=== PATIENT | male | born 1970 | race American Indian/Alaskan Native ===

== ENCOUNTER 2021-08-20 13:14 | Observation (INO) | payer SELFPAY ==
--- NOTE | 2021-08-20 13:55 | Emergency Department Report ---
ED GI Bleed HPI - General Chief complaint: GI Bleed Stated complaint: BLOODY STOOL Source: patient Mode of arrival: Ambulatory Limitations: No Limitations - History of Present Illness Initial comments: 51-year-old -[place]an male presents to the emergency room complaining of 1 week history of bloody diarrhea. Patient admits to dizziness mild abdominal pain 3 out of 10. States that he had endoscopy done in [place] new ~needed irritation of the stomach lining and he was placed on a PPI but has been off his medication for 3 months. Patient is a daily drinker of alcohol and cigarettes. Patient reports he scared to eat. Does not have a primary care provider at this time. MD complaint: melena, gross hematochezia Onset/Timin -: week(s) Location: diffuse Radiation: none Severity scale (0 -10): 7 Quality: sharp Consistency: intermittent Improves with: other (Alcohol) Worsens with: other (Not eating) Context: history of GI bleed, alcohol abuse Treatments Prior to Arrival: none - Related Data Allergies Allergy/AdvReac Type Severity Reaction Status Date / Time No Known Allergies Allergy Unverified 08/20/21 13:22 ED Review of Systems ROS: Stated complaint: BLOODY STOOL Other details as noted in HPI Comment: All other systems reviewed and negative ED Physical Exam - General Limitations: No Limitations General appearance: alert, in no apparent distress - Head Head exam: Present: atraumatic, normocephalic - Eye Eye exam: Present: scleral icterus - ENT ENT exam: Present: mucous membranes moist - Neck Neck exam: Present: normal inspection, full ROM - Respiratory Respiratory exam: Present: normal lung sounds bilaterally - Cardiovascular Cardiovascular Exam: Present: regular rate, normal rhythm. Absent: systolic mu rmur, diastolic murmur, rubs, gallop - GI/Abdominal GI/Abdominal exam: Present: soft, normal bowel sounds - Extremities Exam Extremities exam: Present: normal inspection - Back Exam Back exam: Present: normal inspection - Neurological Exam Neurological exam: Present: alert, oriented X3, normal gait - Psychiatric Psychiatric exam: Present: normal affect, normal mood - Skin Skin exam: Present: warm, dry, intact, normal color. Absent: rash ED Course Vital Signs 08/20/21 13:22 Temperature 98 F Pulse Rate 74 Respiratory 18 Rate Blood Pressure 103/51 [Right] O2 Sat by Pulse 100 Oximetry - Consultations Consultation #1: 08/20/21 16:[address] Perez from [facility]. He states he would like an INR and a proton drip and he will evaluate patient in consult. ED Medical Decision Making - Lab Data Result diagrams: 08/20/21 14:06 08/20/21 14:06 Lab Results 08/20/21 08/20/21 08/20/21 Range/Units 14:06 14:06 14:06 WBC 7.1 (4.5-11.0) K/mm3 RBC 2.69 L (3.65-5.03) M/mm3 Hgb 6.9 L (11.8-15.2) gm/dl Hct 21.6 L (35.5-45.6) % MCV 80 L (84-94) fl MCH 26 L (28-32) pg MCHC 32 (32-34) % RDW 18.5 H (13.2-15.2) % Plt Count 271 (140-440) K/mm3 Lymph % (Auto) 33.1 (13.4-35.0) % [place] % (Auto) 8.7 H (0.0-7.3) % Eos % (Auto) 1.8 (0.0-4.3) % Baso % (Auto) 0.4 (0.0-1.8) % Lymph # (Auto) 2.4 (1.2-5.4) K/mm3 [place] # (Auto) 0.6 (0.0-0.8) K/mm3 Eos # (Auto) 0.1 (0.0-0.4) K/mm3 Baso # (Auto) 0.0 (0.0-0.1) K/mm3 Seg Neutrophils % 56.0 (40.0-70.0) % Seg Neutrophils # 4.0 (1.8-7.7) K/mm3 Sodium 138 (137-145) mmol/L Potassium 3.6 (3.6-5.0) mmol/L Chloride 104.5 (98-107) mmol/L Carbon Dioxide 24 (22-30) mmol/L Anion Gap 13 mmol/L BUN 16 (9-20) mg/dL Creatinine 1.1 (0.8-1.3) mg/dL Estimated GFR > 60 ml/min BUN/Creatinine Ratio 15 % Glucose 106 H (75-100) mg/dL Calcium 8.7 (8.4-10.2) mg/dL Total Bilirubin 0.20 (0.1-1.2) mg/dL AST 20 (5-40) units/L ALT 15 (7-56) units/L Alkaline Phosphatase 72 (35-129) units/L Total Protein 5.9 L (6.3-8.2) g/dL Albumin 3.7 L (3.9-5) g/dL Albumin/Globulin Ratio 1.7 % Lipase 38 (13-60) units/L Blood Type O POSITIVE Antibody Screen Negative - Medical Decision Making 51-year-old -Ch[place]an male presents to the emergency room complaining of 1 week history of bloody diarrhea. Patient admits to dizziness mild abdominal pain 3 out of 10. States that he had endoscopy done in [place] new ~needed irritation of the stomach lining and he was placed on a PPI but has been off his medication for 3 months. Patient is a daily drinker of alcohol and cigarettes. Patient reports he scared to eat. Does not have a primary care provider at this time. CBC CMP lipase CT abdomen H&H is 6.9 and 22, stool guaiac is positive. Pending CT scan results. Type and screen is ordered , packed red blood cells have been ordered 2 units. Spoke to attending Dr. Leigh. Spoke to Dr. Hills hospitalist for admission. Pending consult with GI. Spoke to Dr. Perez from [facility] they recommend INR in a PPI drip. I placed a Protonix 80 mg per 100 mL over 8 hours. Missions orders has been placed. Critical care attestation.: If time is entered above; I have spent that time in minutes in the direct care of this critically ill patient, excluding procedure time. ED Disposition Clinical Impression: Anemia GI bleed Qualifiers: GI bleed type/associated pathology: melena Qualified Code(s): K92.1 - Melena Disposition: ADMITTED INPATIENT Is pt being admited?: Yes Does the pt Need Aspirin: No Condition: Stable Instructions: Gastrointestinal Bleeding, [id number] Referrals: PRIMARY CARE, [Primary Care Provider] - 3-5 Days Forms: Accompanied Note Time of Disposition: 16:29
[2021-08-20 14:42] LABS: Basophils % (Auto) 0.4 % (0.0-1.8); Eosinophils # (Auto) 0.1 K/mm3 (0.0-0.4); Eosinophils % (Auto) 1.8 % (0.0-4.3); Hematocrit 21.6 % (35.5-45.6); Hemoglobin 6.9 gm/dl (11.8-15.2); Lymphocytes # (Auto) 2.4 K/mm3 (1.2-5.4); Lymphocytes % (Auto) 33.1 % (13.4-35.0); Mean Corpuscular HGB Conc 32 % (32-34); Mean Corpuscular Volume 80 fl (84-94); Monocytes # (Auto) 0.6 K/mm3 (0.0-0.8); Monocytes % (Auto) 8.7 % (0.0-7.3); Platelet Count 271 K/mm3 (140-440); Red Blood Count 2.69 M/mm3 (3.65-5.03); Red Cell Distribution Width 18.5 % (13.2-15.2)
[2021-08-20 15:03] LABS: Alanine Aminotransferase 15 units/L (7-56); Albumin 3.7 g/dL (3.9-5); BUN/Creatinine Ratio 15; Blood Urea Nitrogen 16 mg/dL (9-20); Calcium 8.7 mg/dL (8.4-10.2); Hemolysis Index 2
[2021-08-20] MEDS ORDERED: SODIUM CHLORIDE 0.9% 500 ML 500 ML IV ONE ×2 (15:54→21:32)
--- NOTE | 2021-08-20 16:20 | Cat Scan Report ---
CT OF THE ABDOMEN AND PELVIS WITH INTRAVENOUS CONTRAST INDICATION / CLINICAL INFORMATION: Abdominal pain and GI bleed. TECHNIQUE: The patient received 100 cc Omnipaque [address] scans at this location are performed using CT dose reduction for ALARA by means of automated exposure control. COMPARISON: None available. FINDINGS: ABDOMEN: The liver, spleen, gallbladder, bile ducts, pancreas, adrenal glands and kidneys are normal in appearance. There is no evidence of bowel obstruction, wall thickening or free air. No adenopathy is present. No acute vascular abnormality is seen. The lung bases are clear. PELVIS: The distal ureters, urinary bladder, prostate gland and seminal vesicles are normal. There ar e a few scattered sigmoid diverticula without acute inflammation. A normal appendix is present. No ab normal mass or fluid collection is seen. I do not identify a hernia. No acute osseous abnormality is present. IMPRESSION: No acute abnormality is identified. Signer Name: Juan Diez MD Signed: 08/20/2021 4:16 PM Workstation Name: [id number]
[2021-08-20] MEDS ORDERED: PANTOPRAZOLE 80 MG in SODIUM CHLORIDE 0.9% 100 ML IV SCH (17:00)
[2021-08-20 17:17] LABS: INR 0.87 (0.87-1.13)
--- NOTE | 2021-08-20 21:11 | History and Physical Report ---
History of Present Illness Date of examination: 08/20/21 Date of admission: 08/20/21 16:29 Chief complaint: Black Stools for 1 week. Lightheadedness for 1 week History of present illness: 51-year-old male with no significant past medical history comes in for 1 week history of melanotic stools. Patient feels lightheaded and dizzy. Especially on standing. Patient has a history of upper GI bleed. Patient had GI bleed 4 months ago in [place]. Patient had upper endoscopy and was initiated on PPIs. Patient has been noncompliant because of no PCP. No follow-up for GI bleed. Patient has moved from [place] to [place]. Patient is interested in construction jobs. No nausea or vomiting. No hematemesis. Past History Past Medical History: other (GI bleed 4 months ago) Past Surgical History: Other (Upper endoscopy) Social history: smoking, other (Alcohol consumption on a regular basis) Family history: hypertension Medications and Allergies Allergies Allergy/AdvReac Type Severity Reaction Status Date / Time No Known Allergies Allergy Unverified 08/20/21 13:22 Home Medications Medication Instructions Recorded Confirmed Last Taken Type No Known Home Medications [No 08/20/21 08/20/21 Unknown History Reported Home Medications] Active Meds: Active Medications Pantoprazole Sodium 80 mg/ (Sodium Chloride) 100 mls @ 10 mls/hr IV DIRECT JULIAN Last Admin: 08/20/21 18:52 Dose: 8 mg/hr, 10 mls/hr Documented by: Review of Systems All systems: negative Exam - Constitutional Vitals: Temp Pulse Resp BP Pulse Ox 98.5 F 69 15 108/64 100 08/20/21 20:35 08/20/21 20:35 08/20/21 20:35 08/20/21 20:35 08/20/21 20:35 General appearance: Present: no acute distress, well-nourished - EENT Eyes: Present: PERRL ENT: hearing intact, clear oral mucosa - Neck Neck: Present: supple, normal ROM - Respiratory Respiratory effort: normal Respiratory: bilateral: CTA - Cardiovascular Heart rate: 78 Rhythm: regular Heart Sounds: Present: S1 & S2. Absent: rub, click - Extremities Extremities: no ischemia, pulses intact, pulses symmetrical, No edema Peripheral Pulses: within normal limits - Abdominal General gastrointestinal: Present: soft, non-tender, non-distended, normal bowel sounds Male genitourinary: Present: normal - Rectal Rectal Exam: stool dark (Occult blood positive) - Integumentary Integumentary: Present: clear, warm, dry - Musculoskeletal Musculoskeletal: gait normal, strength equal bilaterally - Psychiatric Psychiatric: appropriate mood/affect, intact judgment & insight - Neurologic Neurologic: CNII-XII intact, moves all extremities Results - Labs CBC & Chem 7: 08/20/21 14:06 08/20/21 14:06 Labs: Laboratory Last Values WBC 7.1 K/mm3 (4.5-11.0) 08/20/21 14:06 RBC 2.69 M/mm3 (3.65-5.03) L 08/20/21 14:06 Hgb 6.9 gm/dl (11.8-15.2) L 08/20/21 14:06 Hct 21.6 % (35.5-45.6) L 08/20/21 14:06 MCV 80 fl (84-94) L 08/20/21 14:06 MCH 26 pg (28-32) L 08/20/21 14:06 MCHC 32 % (32-34) 08/20/21 14:06 RDW 18.5 % (13.2-15.2) H 08/20/21 14:06 Plt Count 271 K/mm3 (140-440) 08/20/21 14:06 Lymph % (Auto) 33.1 % (13.4-35.0) 08/20/21 14:06 [place] % (Auto) 8.7 % (0.0-7.3) H 08/20/21 14:06 Eos % (Auto) 1.8 % (0.0-4.3) 08/20/21 14:06 Baso % (Auto) 0.4 % (0.0-1.8) 08/20/21 14:06 Lymph # (Auto) 2.4 K/mm3 (1.2-5.4) 08/20/21 14:06 [place] # (Auto) 0.6 K/mm3 (0.0-0.8) 08/20/21 14:06 Eos # (Auto) 0.1 K/mm3 (0.0-0.4) 08/20/21 14:06 Baso # (Auto) 0.0 K/mm3 (0.0-0.1) 08/20/21 14:06 Seg Neutrophils % 56.0 % (40.0-70.0) 08/20/21 14:06 Seg Neutrophils # 4.0 K/mm3 (1.8-7.7) 08/20/21 14:06 PT 12.8 Sec. (12.2-14.9) 08/20/21 16:35 INR 0.87 (0.87-1.13) 08/20/21 16:35 Sodium 138 mmol/L (137-145) 08/20/21 14:06 Potassium 3.6 mmol/L (3.6-5.0) 08/20/21 14:06 Chloride 104.5 mmol/L (98-107) 08/20/21 14:06 Carbon Dioxide 24 mmol/L (22-30) 08/20/21 14:06 Anion Gap 13 mmol/L 08/20/21 14:06 BUN 16 mg/dL (9-20) 08/20/21 14:06 Creatinine 1.1 mg/dL (0.8-1.3) 08/20/21 14:06 Estimated GFR > 60 ml/min 08/20/21 14:06 BUN/Creatinine Ratio 15 % 08/20/21 14:06 Glucose 106 mg/dL (75-100) H 08/20/21 14:06 Calcium 8.7 mg/dL (8.4-10.2) 08/20/21 14:06 Total Bilirubin 0.20 mg/dL (0.1-1.2) 08/20/21 14:06 AST 20 units/L (5-40) 08/20/21 14:06 ALT 15 units/L (7-56) 08/20/21 14:06 Alkaline Phosphatase 72 units/L (35-129) 08/20/21 14:06 Total Protein 5.9 g/dL (6.3-8.2) L 08/20/21 14:06 Albumin 3.7 g/dL (3.9-5) L 08/20/21 14:06 Albumin/Globulin Ratio 1.7 % 08/20/21 14:06 Lipase 38 units/L (13-60) 08/20/21 14:06 Blood Type O POSITIVE 08/20/21 14:06 Antibody Screen Negative 08/20/21 14:06 Crossmatch See Detail 08/20/21 14:06 - Imaging and Cardiology CT scan - abdomen: report reviewed Imaging and Cardiology: Abdomen/pelvis CT No acute abnormalities identified Assessment and Plan Advance Directives: Yes (Full code) - Patient Problems (1) Upper GI bleed Current Visit: Yes Status: Acute Plan to address problem: IV Protonix drip started GI consult Hematocrit and hemoglobin every 8 hours for 3 times (2) Acute blood loss anemia Current Visit: Yes Status: Acute Plan to address problem: Transfuse 1 unit of blood Check hemoglobin and hematocrit every 8 hours (3) Nicotine dependence Current Visit: Yes Status: Chronic Qualifiers: Nicotine product type: cigarettes Plan to address problem: Patient counseled about smoking cessation. Was given the option of Chantix and Wellbutrin. Patient initiated on NicoDerm patch. Smoking cessation counseling for 10 minutes. (4) Malnutrition Current Visit: Yes Status: Chronic Qualifiers: Protein-calorie malnutrition severity: mild Plan to address problem: Mild To initiate dietary supplements once he starts eating (5) Advance care planning Current Visit: Yes Status: Acute Plan to address problem: Disease education conducted, care plan discussed, diagnosis discussed and patient acknowledges understanding with care plan. +30 minutes. (6) DVT prophylaxis Current Visit: Yes Status: Acute Plan to address problem: On anticoagulation and GI prophylaxis
[2021-08-20] MEDS ORDERED: ONDANSETRON 4 MG/2 ML INJ IV PRN (21:17)
[2021-08-20] MEDS ORDERED: ACETAMINOPHEN 325 MG TAB PO PRN (21:17)
[2021-08-20] MEDS ORDERED: METOCLOPRAMIDE 10 MG/2 ML INJ IV PRN (21:17)
[2021-08-20] MEDS ORDERED: HYDROmorphone 1 MG/1 ML INJ IV PRN ×2 (21:17→21:24)
[2021-08-20] MEDS ORDERED: SODIUM CHLORIDE 0.9% 1000 ML 1,000 ML IV SCH (21:30)
--- NOTE | 2021-08-21 08:31 | Anesthesia Day of Surgery ---
Anesthesia Day of Surgery - Day of Surgery Patient Examined: Yes Patient H&P Reviewed: Yes Patient is NPO: Yes
--- NOTE | 2021-08-21 08:31 | Anesthesia Consultation ---
Anesthesia Consult and Med Hx Date of service: 08/21/21 - Airway Anesthetic Teeth Evaluation: Poor (multiple missing, broken teeth) ROM Head & Neck: Adequate Mental/Hyoid Distance: Adequate Mallampati Class: Class II Intubation Access Assessment: Probably Good - Pre-Operative Health Status ASA Pre-Surgery Classification: ASA3 Proposed Anesthetic Plan: MAC - Pulmonary Hx Smoking: Yes (1/2 pack/day) - Gastrointestinal Hx Ulcer: Yes - Hematic Hx Anemia: Yes - Other Systems Hx Obesity: No (mulnutrition)
--- NOTE | 2021-08-21 09:07 | Gastroenterology Consultation ---
History of Present Illness - Reason for Consult Consult date: 08/21/21 melena/GI bleed Requesting physician: LANDON IVORY - History of Present Illness The patient is a 51 yo aam who presents with melena and light headedness. Pt reports having black stools on and off for 10 days. he has had similar sx's months ago with prior upper endoscopy in [place] showing "irritation" and he was placed on PPI. has not been taking medication recently. + epigastric abd pain for past couple weeks, he bought otc ppi which helped "soothe" his stomach. + alcohol abuse (3-4 beers nightly). no known h/o chronic liver disease/cirrhosis. no further bleeding episodes since admission. s/p blood transfusions with stable vital signs. Past History Past Medical History: other (GI bleed 4 months ago) Past Surgical History: Other (Upper endoscopy) Social history: smoking, other (Alcohol consumption on a regular basis) Family history: hypertension Medications and Allergies Allergies Allergy/AdvReac Type Severity Reaction Status Date / Time No Known Allergies Allergy Unverified 08/20/21 13:22 Home Medications Medication Instructions Recorded Confirmed Last Taken Type No Known Home Medications [No 08/20/21 08/20/21 Unknown History Reported Home Medications] Active Meds: Active Medications Acetaminophen (Acetaminophen 325 Mg Tab) 650 mg PO Q4H PRN PRN Reason: Pain MILD(1-3)/Fever >100.5/BROWNING Hydromorphone HCl (Hydromorphone 1 Mg/1 Ml Inj) 0.5 mg IV Q3H PRN PRN Reason: Pain , Severe (7-10) Pantoprazole Sodium 80 mg/ (Sodium Chloride) 100 mls @ 10 mls/hr IV DIRECT JULIAN Last Admin: 08/20/21 18:52 Dose: 8 mg/hr, 10 mls/hr Documented by: Sodium Chloride (Nacl 0.9% 1000 Ml) 1,000 mls @ 42 mls/hr IV DIRECT JULIAN Metoclopramide HCl (Metoclopramide 10 Mg/2 Ml Inj) 10 mg IV Q6H PRN PRN Reason: Nausea And Vomiting Morphine Sulfate (Morphine 2 Mg/1 Ml Inj) 2 mg IV Q4H PRN PRN Reason: Pain, Moderate (4-6) Ondansetron HCl (Ondansetron 4 Mg/2 Ml Inj) 4 mg IV Q3H PRN PRN Reason: Nausea And Vomiting Sodium Chloride (Sodium Chloride 0.9% 10 Ml Flush Syringe) 10 ml IV BID JULIAN Sodium Chloride (Sodium Chloride 0.9% 10 Ml Flush Syringe) 10 ml IV PRN PRN PRN Reason: LINE FLUSH Reviewed/updated patient's home and current medications. Review of Systems - Review of Systems All systems: negative (per HPI) Exam - Constitutional Vital Signs: Temp Pulse Resp BP Pulse Ox 98.9 F 58 L 12 115/88 100 08/20/21 23:02 08/21/21 02:15 08/21/21 04:45 08/21/21 07:01 08/21/21 07:01 General appearance: no acute distress - Respiratory Respiratory effort: normal Respiratory: bilateral: CTA - Cardiovascular Rhythm: regular Heart Sounds: Present: S1 & S2 - Gastrointestinal General gastrointestinal: Present: soft, non-tender, non-distended - Integumentary Integumentary: Present: clear, warm - Neurologic Neurological: alert and oriented x3 - Psychiatric Psychiatric: appropriate mood/affect - Labs CBC & Chem 7: 08/20/21 14:06 08/20/21 14:06 Lab Results: Laboratory Results - last 24 hr 08/20/21 08/20/21 08/20/21 14:06 14:06 14:06 WBC 7.1 RBC 2.69 L Hgb 6.9 L Hct 21.6 L MCV 80 L MCH 26 L MCHC 32 RDW 18.5 H Plt Count 271 Lymph % (Auto) 33.1 [place] % (Auto) 8.7 H Eos % (Auto) 1.8 Baso % (Auto) 0.4 Lymph # (Auto) 2.4 [place] # (Auto) 0.6 Eos # (Auto) 0.1 Baso # (Auto) 0.0 Seg Neutrophils % 56.0 Seg Neutrophils # 4.0 PT INR Sodium 138 Potassium 3.6 Chloride 104.5 Carbon Dioxide 24 Anion Gap 13 BUN 16 Creatinine 1.1 Estimated GFR > 60 BUN/Creatinine Ratio 15 Glucose 106 H Calcium 8.7 Total Bilirubin 0.20 AST 20 ALT 15 Alkaline Phosphatase 72 Total Protein 5.9 L Albumin 3.7 L Albumin/Globulin Ratio 1.7 Lipase 38 Blood Type O POSITIVE Antibody Screen Negative Crossmatch See Detail 08/20/21 16:35 WBC RBC Hgb Hct MCV MCH MCHC RDW Plt Count Lymph % (Auto) [place] % (Auto) Eos % (Auto) Baso % (Auto) Lymph # (Auto) [place] # (Auto) Eos # (Auto) Baso # (Auto) Seg Neutrophils % Seg Neutrophils # PT 12.8 INR 0.87 Sodium Potassium Chloride Carbon Dioxide Anion Gap BUN Creatinine Estimated GFR BUN/Creatinine Ratio Glucose Calcium Total Bilirubin AST ALT Alkaline Phosphatase Total Protein Albumin Albumin/Globulin Ratio Lipase Blood Type Antibody Screen Crossmatch - Imaging CT Scan: report reviewed Assessment and Plan 1. Microcytic anemia/GI bleed - reports black stools for 1-2 weeks. HD stable, s/p blood transfusions. + alcohol abuse but no obvious signs of chronic liver disease/cirrhosis based on labs imaging. cont PPI and will plan EGD today.
[2021-08-21] MEDS ORDERED: propofoL 200 MG/20 ML VIAL IV ONE (09:11)
--- NOTE | 2021-08-21 09:22 | Operative Report ---
Operative Report Operative Report: Esophagogastroduodenoscopy Procedure Note with biopsy Date of procedure: 08/21/2021 Endoscopist: Dipak Perez Pre-op diagnosis/indication: Melena, GI bleed Post-op diagnosis: Gastric ulcers (clean based) MEDICATIONS: MAC COMPLICATIONS: No immediate complications ESTIMATED BLOOD LOSS: Minimal DESCRIPTION OF PROCEDURE: After consent was obtained, the patient was placed in the left lateral decubitis position. The olympus endoscope was inserted into the patient's mouth under direct vision and advanced to the 2nd portion of the duodenum without difficulty. The patient tolerated the procedure well. The views of the mucosa were good. The patient's vital signs were monitored continuously throughout the procedure. FINDINGS: There was a small hiatal hernia. Otherwise, the esophagus appeared normal. There was an ~8 mm slightly cratered ulcer in the antrum of the stomach. There was another ~2 mm superficial ulcer in the antrum of the stomach. There was no high risk bleeding stigmata seen. Biopsies were taken from the mucosa around the ulcer. The rest of the stomach appeared normal. The duodenum appeared normal. IMPRESSION: 1. Gastric ulcers (~8 mm and ~2 mm) in the antrum of the stomach without high risk bleeding stigmata. Biopsies were obtained from the mucosa around the ulcer. RECOMMENDATIONS: -cont PPI BID dosing -avoid nsaid medications -counseled on alcohol cessation -follow-up pathology -repeat upper endoscopy in 2 months to assess for healing -needs colonoscopy as outpatient as well (no prior exam) -can resume diet from gi stand point, and discharge tomorrow possibly if no new changes/stable labs.
--- NOTE | 2021-08-21 17:28 | Post Anesthesia Evaluation ---
- Post Anesthesia Evaluation Patient Participated: Yes Airway Patent: Yes Stable Respiratory Function: Yes Nausea/Vomiting: No Temp > 96.8F: Yes Pain Manageable: Yes Adequeate Hydration: Yes Anesthesia Complications: No Block Receding Appropriately: Not Applicable Patient on Ventilator: No
[2021-08-21] MEDS: MORPHINE 2 MG/1 ML INJ IV PRN (21:55)
[2021-08-21] MEDS ORDERED: hydrALAZINE 20 MG/1 ML INJ ONE (22:04)
[2021-08-22] MEDS: MORPHINE 2 MG/1 ML INJ IV PRN (03:44)
[2021-08-22 05:51] VITALS: BP 106/67
--- NOTE | 2021-08-22 06:53 | Progress Note ---
Assessment and Plan - Patient Problems (1) Upper GI bleed Current Visit: Yes Status: Acute Plan to address problem: IV Protonix drip started GI consult Hematocrit and hemoglobin every 8 hours for 3 times Hematocrit stable IMPRESSION: 1. Gastric ulcers (~8 mm and ~2 mm) in the antrum of the stomach without high risk bleeding stigmata. Biopsies were obtained from the mucosa around the ulcer. RECOMMENDATIONS: -cont PPI BID dosing -avoid nsaid medications -counseled on alcohol cessation -follow-up pathology -repeat upper endoscopy in 2 months to assess for healing -needs colonoscopy as outpatient as well (no prior exam) -can resume diet from gi stand point, and discharge tomorrow possibly if no new changes/stable labs. (2) Acute blood loss anemia Current Visit: Yes Status: Acute Plan to address problem: Transfuse 1 unit of blood Check hemoglobin and hematocrit every 8 hours (3) Nicotine dependence Current Visit: Yes Status: Chronic Qualifiers: Nicotine product type: cigarettes Plan to address problem: Patient counseled about smoking cessation. Was given the option of Chantix and Wellbutrin. Patient initiated on NicoDerm patch. Smoking cessation counseling for 10 minutes. (4) Malnutrition Current Visit: Yes Status: Chronic Qualifiers: Protein-calorie malnutrition severity: mild Plan to address problem: Mild To initiate dietary supplements once he starts eating (5) Advance care planning Current Visit: Yes Status: Acute Plan to address problem: Disease education conducted, care plan discussed, diagnosis discussed and patient acknowledges understanding with care plan. +30 minutes. (6) DVT prophylaxis Current Visit: Yes Status: Acute Subjective Date of service: 08/21/21 Principal diagnosis: GI bleed Interval history: 51-year-old male with no significant past medical history comes in for 1 week history of melanotic stools. Patient feels lightheaded and dizzy. Especially on standing. Patient has a history of upper GI bleed. Patient had GI bleed 4 months ago in [place]. Patient had upper endoscopy and was initiated on PPIs. Patient has been noncompliant because of no PCP. No follow-up for GI bleed. Patient has moved from [place] to [place]. Patient is interested in construction jobs. No nausea or vomiting. No hematemesis. 08/22/2021 Patient had upper endoscopy Showed gastric ulcer Diet to be advanced Possible discharge tomorrow GI consult and procedure appreciated Objective - Constitutional Vitals: Vital Signs - 12hr 08/21/21 08/21/21 08/21/21 19:01 20:01 21:50 Temperature Pulse Rate Respiratory Rate Blood Pressure 110/65 110/56 Blood Pressure [Right] O2 Sat by Pulse 100 99 100 Oximetry 08/21/21 08/22/21 21:51 05:50 Temperature 98.4 F 98.0 F Pulse Rate 64 65 Respiratory 16 18 Rate Blood Pressure 106/67 Blood Pressure 123/60 [Right] O2 Sat by Pulse 99 Oximetry General appearance: Present: no acute distress, well-nourished - EENT Eyes: PERRL, EOM intact ENT: hearing intact, clear oral mucosa Ears: bilateral: normal - Neck Neck: supple, normal ROM - Respiratory Respiratory effort: normal Respiratory: bilateral: CTA - Breasts Breasts: normal - Cardiovascular Heart rate: 78 Rhythm: regular Heart Sounds: Present: S1 & S2. Absent: gallop, rub Extremities: pulses intact, No edema, normal color, Full ROM - Gastrointestinal General gastrointestinal: Present: soft, non-tender, non-distended, normal bowel sounds - Genitourinary Male genitourinary: normal - Integumentary Integumentary: clear, warm, dry - Musculoskeletal Musculoskeletal: 1, strength equal bilaterally - Neurologic Neurologic: moves all extremities - Psychiatric Psychiatric: memory intact, appropriate mood/affect, intact judgment & insight - Labs CBC & Chem 7: 08/20/21 14:06 08/20/21 14:06
[2021-08-22 07:30] LABS: Hematocrit 32.2 % (35.5-45.6); Mean Corpuscular HGB Conc 31 % (32-34); Mean Corpuscular Volume 83 fl (84-94); Platelet Count 259 K/mm3 (140-440); Red Blood Count 3.86 M/mm3 (3.65-5.03); Red Cell Distribution Width 17.6 % (13.2-15.2)
[2021-08-22 07:40] LABS: BUN/Creatinine Ratio 12; Blood Urea Nitrogen 12 mg/dL (9-20); Calcium 8.2 mg/dL (8.4-10.2); Hemolysis Index 3
[2021-08-22] MEDS ORDERED: PANTOPRAZOLE 40 MG INJ IV SCH (08:30)
--- NOTE | 2021-08-22 10:30 | Discharge Summary ---
Providers - Providers Date of Admission: 08/20/21 16:29 Attending physician: CARMELLA STEINBERG MD 08/20/21 21:33 Consult to Physician [CONS] Routine Comment: Consulting Provider: SAGRARIO ANDRADE Physician Instructions: Reason For Exam: Upper GI bleed Primary care physician: [facility] Hospitalization Reason for admission: abdominal pain Condition: Stable Hospital course: 51-year-old male with no significant past medical history comes in for 1 week history of melanotic stools. Patient feels lightheaded and dizzy. Especially on standing. Patient has a history of upper GI bleed. Patient had GI bleed 4 months ago in [place]. Patient had upper endoscopy and was initiated on PPIs. Patient has been noncompliant because of no PCP. No follow-up for GI bleed. Patient has moved from [place] to [place]. Patient is interested in construction jobs. No nausea or vomiting. No hematemesis. 08/22/2021 Patient had upper endoscopy Showed gastric ulcer Diet to be advanced Possible discharge today with instructions given GI consult and procedure appreciated counselling provided for 15 mins (1) Upper GI bleed Current Visit: Yes Status: Acute Plan to address problem: IV Protonix drip started GI consult Hematocrit and hemoglobin every 8 hours for 3 times Hematocrit stable IMPRESSION: 1. Gastric ulcers (~8 mm and ~2 mm) in the antrum of the stomach without high risk bleeding stigmata. Biopsies were obtained from the mucosa around the ulcer. RECOMMENDATIONS: -cont PPI BID dosing -avoid nsaid medications -counseled on alcohol cessation -follow-up pathology -repeat upper endoscopy in 2 months to assess for healing -needs colonoscopy as outpatient as well (no prior exam) -can resume diet from gi stand point, and discharge tomorrow possibly if no new changes/stable labs. (2) Acute blood loss anemia Current Visit: Yes Status: Acute Plan to address problem: Transfuse 1 unit of blood Check hemoglobin and hematocrit every 8 hours (3) Nicotine dependence Current Visit: Yes Status: Chronic Qualifiers: Nicotine product type: cigarettes Plan to address problem: Patient counseled about smoking cessation. Was given the option of Chantix and Wellbutrin. Patient initiated on NicoDerm patch. Smoking cessation counseling for 10 minutes. (4) Malnutrition Current Visit: Yes Status: Chronic Qualifiers: Protein-calorie malnutrition severity: mild Plan to address problem: Mild To initiate dietary supplements once he starts eating FINDINGS: There was a small hiatal hernia. Otherwise, the esophagus appeared normal. There was an ~8 mm slightly cratered ulcer in the antrum of the stomach. There was another ~2 mm superficial ulcer in the antrum of the stomach. There was no high risk bleeding stigmata seen. Biopsies were taken from the mucosa around the ulcer. The rest of the stomach appeared normal. The duodenum appeared normal. IMPRESSION: 1. Gastric ulcers (~8 mm and ~2 mm) in the antrum of the stomach without high risk bleeding stigmata. Biopsies were obtained from the mucosa around the ulcer. RECOMMENDATIONS: -cont PPI BID dosing -avoid nsaid medications -counseled on alcohol cessation -follow-up pathology -repeat upper endoscopy in 2 months to assess for healing -needs colonoscopy as outpatient as well (no prior exam) -can resume diet from gi stand point, and discharge tomorrow possibly if no new changes/stable labs. Disposition: 01 HOME / SELF CARE / HOMELESS Final Discharge Diagnosis (Prints w/discharge instructions): Acute blood loss anemia with gastric ulcer Time spent for discharge: 35 mins Core Measure Documentation - Palliative Care Palliative Care/ Comfort Measures: Not Applicable - Core Measures Any of the following diagnoses?: none Exam - Physical Exam Narrative exam: VITAL SIGNS: Reviewed. GENERAL: The patient appears normally developed, Vital signs as documented. HEAD: No signs of head trauma. EYES: Pupils are equal. Extraocular motions intact. EARS: Hearing grossly intact. MOUTH: Oropharynx is normal. NECK: No adenopathy, no JVD. CHEST: Chest with clear breath sounds bilaterally. No wheezes, rales, or rhonchi. CARDIAC: Regular rate and rhythm. S1 and S2, without murmurs, gallops, or rubs. VASCULAR: No Edema. Peripheral pulses normal and equal in all extremities. ABDOMEN: Soft, non tender and non distended. No rebound or guarding, and no masses palpated. Bowel Sounds normal. MUSCULOSKELETAL: Good range of motion of all major joints. Extremities without clubbing, cyanosis or edema. NEUROLOGIC EXAM: Alert and oriented x 3 No focal sensory or strength deficits. Speech normal. Follows commands. PSYCHIATRIC: Mood normal. SKIN: detail exam as documented in skin assessment - Constitutional Vitals: Temp Pulse Resp BP Pulse Ox 98.0 F 65 18 106/67 99 08/22/21 05:50 08/22/21 05:50 08/22/21 05:50 08/22/21 05:50 08/22/21 08:39 Plan Activity: advance as tolerated Diet: regular Special Instructions: record daily weights, smoking cessation Care Plan Goals: RECOMMENDATIONS: -cont PPI BID dosing -avoid nsaid medications -counseled on alcohol cessation -follow-up pathology -repeat upper endoscopy in 2 months to assess for healing -needs colonoscopy as outpatient as well (no prior exam) -can resume diet from GI stand point, and discharge tomorrow possibly if no new changes/stable labs. Follow up with: PRIMARY CARE, [Primary Care Provider] - 3-5 Days Forms: Accompanied Note Prescriptions: Pantoprazole [Protonix TAB] 40 mg PO BIDAC #60 tablet
[2021-08-23] MEDS ORDERED: PANTOPRAZOLE 40 MG TAB PO SCH (07:30)
== END 2021-08-22 12:50 | disposition home or self-care (01) ==
LOC: ED 13:14 → 3A 16:29 → INTOOBSV 16:29 → 3A 08-21 19:33
PROVIDERS: ADMIT Internal Medicine; ATTEND Internal Medicine
DX: K92.2 Gastrointestinal hemorrhage, unspecified (principal); D62 Acute posthemorrhagic anemia; E46 Unspecified protein-calorie malnutrition; F17.210 Nicotine dependence, cigarettes, uncomplicated; Z68.22 Body mass index [BMI] 22.0-22.9, adult; Z79.899 Other long term (current) drug therapy
CPT/HCPCS: 36415; 36430; 43239; 74177; 80048; 80053; 82271; 83690; 85025; 85027; 85610; 86850; 86900; 86901; 86920; 88305; 88342; 96365; 96366; 96375; 96376; 99285; C9113; G0378; J2270; J2704; J2765; J7040; P9016; Q9967; J7120